=== PATIENT | female | born 1980 | race Two or more races ===

== ENCOUNTER 2023-08-29 22:14 | Emergency (ER) | payer SELFPAY ==
[~2023-08-29] VITALS: Ht 157.5 cm; Wt 74.9 kg
[2023-08-29] MEDS: ONDANSETRON ODT 4 MG TAB PO ONE (22:51)
[2023-08-29 22:52] VITALS: BP 138/83; PULSE 88; RESP 20; TEMP 98.8; O2SAT 96
[2023-08-29 23:00] LABS: Basophils # (auto) 0 10 ^3/uL (0-0.2); Hemoglobin 12.1 g/dL (12.2-16.2); Lymphocytes # (auto) 2.7 10 ^3/uL (0.4-5.4); Monocytes # (auto) 0.5 10 ^3/uL (0-1.3); White Blood Cell 8.3 10^3/uL (4.4-10.8)
[2023-08-29 23:02] LABS: Basophils % (auto) 0.3 % (0.0-2.0); Eosinophils # (auto) 0 10 ^3/uL (0-0.8); Eosinophils % (auto) 0.4 % (0.0-7.0); Hematocrit 37.8 % (36.0-46.0); Lymphocytes % (auto) 32.1 % (10.0-50.0); Neutrophils % (auto) 61.2 % (37.0-80.0); Red Blood Cells 4.84 10^6/uL (4.0-5.20); Red Cell Distribution Width 13.7 % (11.8-14.3)
[2023-08-29 23:10] LABS: Chloride 104 mmol/L (98-107); Potassium 3.6 mmol/L (3.5-5.1); Sodium 138 mmol/L (136-145)
[2023-08-29 23:11] LABS: Anion Gap 7 (5-15); Calcium 10.1 mg/dL (8.7-10.4); Carbon Dioxide 27 mmol/L (20-30)
[2023-08-29 23:16] LABS: BUN/Creatinine Ratio 31.1 (10.0-20.0); Blood Urea Nitrogen 23 mg/dL (9-23); Glucose 88 mg/dL (74-106)
[2023-08-29] MEDS ORDERED: ZOFR4T PO (23:40)
== END 2023-08-29 23:44 | disposition home or self-care (01) ==
LOC: ER 22:14
DX: S06.0X0A Concussion without loss of consciousness, initial encounter (principal); R10.2 Pelvic and perineal pain; R11.10 Vomiting, unspecified; Y04.2XXA Assault by strike against or bumped into by another person, initial encounter; Y93.89 Activity, other specified; Y92.89 Other specified places as the place of occurrence of the external cause; Y99.8 Other external cause status
CPT/HCPCS: 36415; 80048; 84702; 85025; 93005; 99284; Q0162